=== PATIENT | female | born 1955 | race African-American/Black ===

== ENCOUNTER 2016-10-03 13:26 | Emergency (ER) | payer OTHER ==
[~2016-10-03] VITALS: Ht 160 cm; Wt 75.0 kg
[~2016-10-03 13:26] MED LIST: BUPR150T PO; GABA800T PO; HYDR25TA35 PO; IBUP800T23 PO; IMDU30TA PO; LOSA50; METO50TA PO; NIFE1TAB85 PO; NITR0.4S SL; PLAV75TA PO; PRAV40TA PO; ST J81CH PO; ULTR50TA PO; VITA100032
[2016-10-03 13:29] VITALS: BP 150/67; PULSE 75; RESP 16; TEMP 98.2; O2SAT 96
--- NOTE | 2016-10-03 16:05 | PD ---
HPI Chief Complaint: Pain: Acute or Chronic Time Seen by Provider: 16:01 Travel History International Travel<30 days: No Contact w/Intl Traveler<30days: No Traveled to known affect area: No History of Present Illness HPI 61-year-old female presents emergency Department with complaint of swelling to her left knee times one day. She states that she was down on the floor on her knees and she used her left knee to get up off the floor and it swelled up immediately. Denies twisting or injury to the knee. She did follow week ago and hurt the same knee but the swelling occurred today after getting off the floor. Denies paresthesias, loss of sensation to the affected extremity. Reports decreased range of motion secondary to pain and swelling. Denies fever , chills, nausea, vomiting. Has not taken any medications or tried any treatments to alleviate her symptoms. History of hypertension and stent placement. Allergies to sulfa. No other modifying factors or associated signs and symptoms. PFSH Past Medical History Arthritis: No Asthma: No Autoimmune Disease: No Blood Disorders: No Anxiety: Yes Depression: Yes Heart Rhythm Problems: No Cancer: No Cardiac Catheterization: Yes (STENTS X2) Cardiovascular Problems: Yes (HTN) High Cholesterol: Yes Chemotherapy: No Chest Pain: Yes Congestive Heart Failure: No COPD: No Cerebrovascular Accident: No Diabetes: No Diminished Hearing: No Endocrine: No Gastrointestinal Disorders: Yes GERD: No Glaucoma: No Gout: No Genitourinary: No Headaches: No Hepatitis: No Hiatal Hernia: No Hypertension: Yes Immune Disorder: No Kidney Stones: No Musculoskeletal: No Neurologic: No Psychiatric: No Reproductive: No Respiratory: No Myocardial Infarction: Yes (STENT 2002) Radiation Therapy: No Renal Failure: No Seizures: No Sickle Cell Disease: No Sleep Apnea: No Thyroid Disease: No Ulcer: Yes Menopausal: Yes Past Surgical History Abdominal Surgery: No AICD: No Cardiac Surgery: Yes (stents) Coronary Artery Bypass Graft: No Coronary Stent: Yes Ear Surgery: No Endocrine Surgery: No Eye Surgery: No Genitourinary Surgery: No Gynecologic Surgery: Yes (hysterectomy) Hysterectomy: Yes Insulin Pump: No Joint Replacement: No Oral Surgery: No Pacemaker: No Thoracic Surgery: No Other Surgery: Yes (LUMP REMOVED FROM RIGHT BREAST-NON CANCER) Social History Alcohol Use: Yes (OCCASIONALLY BEER) Tobacco Use: Yes (A FEW CIGS/DAY) Substance Use: No Allergies-Medications (Allergen,Severity, Reaction): Coded Allergies: Sulfa (Verified Allergy, Severe, TONGUE EDEMA, 10/03/16) Reported Meds & Prescriptions Reported Meds & Active Scripts Active Folding Walker/5" Wheels (Device) 1 Mis Mis 1 Ea .ROUTE DIRECTED Naprosyn (Naproxen) 500 Mg Tab 500 Mg PO BID PRN 7 Days Review of Systems Except as stated in HPI: all other systems reviewed are Neg Physical Exam Narrative GENERAL: Well-nourished, well-developed female patient, in no acute distress SKIN: Warm and dry. HEAD: Atraumatic. Normocephalic. EYES: Pupils equal and round. No scleral icterus. No injection or drainage. ENT: Mucosa pink and moist. Airway patent. NECK: Trachea midline. CARDIOVASCULAR: Regular rate. RESPIRATORY: No accessory muscle use. GASTROINTESTINAL: Rounded. MUSCULOSKELETAL: Left knee is edematous at the patellar aspect only; tenderness to palpation to the patellar aspect; limited range of motion less than 45; unable to assess knee joint stability; no obvious deformity. Left lower extremity is supple and non-tense with 2+ pedal pulses and sensory intact and without erythema or edema. NEUROLOGICAL: Awake and alert. Oriented 3. No obvious cranial nerve deficits. Motor grossly within normal limits. Normal speech. PSYCHIATRIC: Appropriate mood and affect; insight and judgment normal. Data Data Last Documented VS Vital Signs Date Time Temp Pulse Resp B/P Pulse Ox O2 Delivery O2 Flow Rate FiO2 10/03/16 13:29 98.2 75 16 150/67 96 Orders Knee, Complete (4vws) (10/03/16 15:54) Ice/Cold Pack (10/03/16 15:54) MDM Medical Decision Making Medical Screen Exam Complete: Yes Emergency Medical Condition: Yes Medical Record Reviewed: Yes Differential Diagnosis Knee pain, knee effusion, Narrative Course 61-year-old female with swelling to the patellar aspect of her knee after using her knee to stand up off the floor at approximately 1:30 today. Patient is afebrile. She denies fever, chills, nausea, vomiting. Left lower 20 supplemented with 2+ pulses and sensory intact. Left knee x-ray ordered. 1646: Left knee x-ray concludes Focal soft tissue swelling over the patella which could indicate a prepatellar bursitis. Naprosyn and walker prescribed for home. Instructed patient to follow up with primary care provider within one day and she verbalized understanding and agreement. Discussed signs of infected bursitis and patient verbalized understanding and agreement. Patient is medically cleared and stable for discharge. Discussed reasons to return to the emergency department. Instructed patient to follow up with primary care provider. Patient agrees with treatment plan. The patients vital signs are stable and the patient is stable for outpatient follow-up and treatment. Patient discharged home, stable and in no acute distress. Diagnosis Primary Impression: Prepatellar bursitis, left knee Referrals: Primary Care Physician Patient Instructions: General Instructions, Knee Bursitis (ED) Additional Instructions: Nonsteroidal anti-inflammatory drugs as directed and as needed for pain and inflammation Rest your knee Apply ice for 20 minutes at a time Moustapha wrap for compression Elevate her knee Walker for support Follow-up with primary care provider Return to the emergency department immediately with worsening of symptoms Med/Other Pt SpecificInfo: Prescription(s) given Scripts Folding Walker/5" Wheels 1 Mis Mis #1 Ea .route As Directed Prov:Annalise Zambrano 10/03/16 Naproxen (Naprosyn)500 Mg [id number] Mg PO BID PRN (PAIN SCALE 1 TO 10) 7 Days Ref 0 Prov:Annalise Zambrano 10/03/16 Disposition: 01 DISCHARGE HOME Condition: Stable Annalise Zambrano Oct 03, 2016 16:05
--- NOTE | 2016-10-03 16:39 | RADRPT ---
EXAM DATE/TIME: 10/03/2016 16:20 [facility] COMPARISON: No previous studies available for comparison. INDICATIONS : Left knee pain. MEDICAL HISTORY : None. SURGICAL HISTORY : None. ENCOUNTER: Initial ACUITY: 1 week PAIN SCORE: 10/10 LOCATION: anterior Knee. FINDINGS: A standard 4 view examination of the left knee was obtained and demonstrates focal soft tissue swelli ng over the patella with no acute fracture or malalignment. There is no definite joint effusion. Vasc ular calcifications are present. There is no evidence of a joint body. CONCLUSION: Focal soft tissue swelling over the patella which could indicate a prepatellar bursit is. Huey Varela MD on October 03, 2016 at 16:36 Board Certified Radiologist. This report was verified electronically.
[2016-10-03] MEDS ORDERED: NAPR500 PO (17:03)
[2016-10-03] MEDS ORDERED: MISC-274 (17:05)
== END 2016-10-03 17:18 | disposition home or self-care (01) ==
LOC: NEPB 13:26
DX: M70.42 Prepatellar bursitis, left knee (principal); I10 Essential (primary) hypertension; I25.2 Old myocardial infarction; Z72.0 Tobacco use; Z88.2 Allergy status to sulfonamides
CPT/HCPCS: 73564; 99283